=== PATIENT | female | born 1995 | race African-American/Black ===

== ENCOUNTER 2021-08-15 17:52 | Emergency (ER) | payer SELFPAY ==
[2021-08-15 18:06] VITALS: BP 110/70; PULSE 72; TEMP 98.6; BMI 31.8
== END 2021-08-15 20:50 | disposition home or self-care (01) ==
LOC: JERFT 17:52 → JER 17:52 → JERFT 20:50
PROC: 0H9HXZZ Drainage of Right Upper Leg Skin, External Approach (ICD-10-PCS; principal; 2021-08-15)
DX: L02.415 Cutaneous abscess of right lower limb (principal)
CPT/HCPCS: 87070; 87076; 87186; 87205; 99283-25